=== PATIENT | male | born 1995 | race Caucasian/White ===

== ENCOUNTER 2019-11-29 06:45 | Day surgery (SDC) | payer OTHER ==
[2019-11-28 16:10] VITALS: BMI 28.7
--- NOTE | 2019-11-29 08:24 | HP ---
History & Physical Update - History History: No Change - Physical Physical: No Change - Assessment Assessment: No Change - Plan Plan: No Change (Initial H&P is located in patient's paper chart. Complete/ accurate/UTD. No new complaints or medications.)
[2019-11-29] MEDS ORDERED: MIDAZOLAM HCL 2 MG/2 ML SINGLE DOSE VIAL ONE ×2 (10:07→10:57)
[2019-11-29] MEDS ORDERED: BUPIVACAINE HCL/PF 0.5% (5 MG/ML) 30 ML VIAL IJ ONE (10:07)
[2019-11-29] MEDS ORDERED: BUPIVACAINE HCL/PF 0.5% (5MG/ML) 10 ML VIAL ONE (10:44)
[2019-11-29] MEDS ORDERED: methylPREDNISolone ACET (DEPO) 40 MG/1 ML VIAL ONE (10:52)
[2019-11-29] MEDS ORDERED: LIDOCAINE 1%/EPI 1:100000 (20 ML MULTI DOSE VIAL) ONE (10:52)
[2019-11-29] MEDS ORDERED: GUM MASTIC/STORAX/MSAL/ALCOHOL 1 DRP DROPSBTL MC ONE (10:53)
[2019-11-29] MEDS ORDERED: ceFAZolin SODIUM 1 GM VIAL ONE (11:08)
[2019-11-29] MEDS ORDERED: LIDOCAINE 1%/EPI 1:100000 (20 ML MULTI DOSE VIAL) INF ONE (11:16)
[2019-11-29] MEDS ORDERED: methylPREDNISolone ACET (DEPO) 40 MG/1 ML VIAL IM ONE (12:08)
--- NOTE | 2019-11-29 12:35 | OP ---
Operative Note - Note: Operative Date: 11/29/19 Pre-Operative Diagnosis: L5/S1 stenois, herniated disc, radiculopathy Operation: L5/S1 laminectomy (bilateral), left discectomy Post-Operative Diagnosis: Same as Pre-op Surgeon: Madi Voss [employer]ominium Property Manager: Rod Parish Anesthesiologist/SPINNER BOX: Jono Storm Anesthesia: Spinal Specimens Removed: L5/S1 discectomy Estimated Blood Loss (mls): 20 Fluid Volume Replaced (mls): 600 Operative Report Dictated: Yes
[2019-11-29] MEDS ORDERED: ONDANSETRON 4 MG/2 ML VIAL IVPUSH PRN (12:39)
[2019-11-29] MEDS ORDERED: PROMETHAZINE HCL 25 MG/1 ML VIAL IVPUSH PRN (12:39)
--- NOTE | 2019-11-29 13:06 | OP ---
DATE OF OPERATION: 11/29/2019 PREOPERATIVE DIAGNOSIS: Spinal stenosis L5-S1. POSTOPERATIVE DIAGNOSIS: Spinal stenosis L5-S1. PROCEDURE PERFORMED: Laminectomy L5-S1. SURGEON: Madi Voss MD CERAMIC SPRAYER: REMBERTO Marin ESTIMATED BLOOD LOSS: 50 mL. INTRAVENOUS FLUIDS: Per anesthesia. ANESTHESIA: Spinal/TLIP block. COMPLICATIONS: There were none. DISPOSITION: Patient was brought to the PACU in stable condition. INDICATIONS FOR SURGERY: Patient is a 24-year-old gentleman who has been suffering from pain from his back down his leg. X-rays and MRI were completed, which noted that he had spinal stenosis at L5, S1. He had gone through an exhaustive course of treatment for this, which included medications, physical therapy as well as injections. Unfortunately, his pain continued to persist despite all this. At this point, risks, benefits, alternatives were discussed, and the patient consented to surgery. DESCRIPTION OF PROCEDURE: The patient was brought to the operating room by the anesthesia staff. After appropriate patient identification was performed, spinal anesthesia was given. A TLIP block was also given. Patient was able to position himself prone onto the OR table with all areas and bony prominences well padded at this time. Two needles were placed into his back to brian off the L5-S1 segment. X-ray was taken to confirm this was correct. Needle was removed, and 10 mL of lidocaine with epinephrine was injected into his back. At this time, his back was prepped and draped in a sterile manner. At this point, a time-out was completed. An incision was made from the top of L5 down to the bottom of S1. Dissection was carried down to the fascia. Fascia was then split open at this time, and appropriate retractor was then placed in. A spinal needle was placed onto the L5 lamina to brian off the L5-S1 level. X-rays was taken to confirm this was correct. Needle was removed, and the interspinous ligament at L5-S1 was removed. Portions of the L5-S1 spinous processes were removed. Portions of the lamina were removed. Flavum was removed. A complete decompression was performed. The nerve root was mobilized medially. A disk herniation was noted. By the end of the procedure, the S1 nerve root appeared to be well decompressed. All bleeding was well controlled at this time. Steroid was placed over the nerve root. FloSeal was placed over that. The fascia was closed with a No. 1 Vicryl suture. The subcutaneous tissue was closed with 2-0 Vicryl suture. The skin was closed with 3-0 Monocryl suture. Dermabond was applied. Steri-Strips were applied. A sterile dressing was applied. The patient was placed supine on the OR bed, brought to the PACU in stable condition. Khadijah POOL/[id number]
[2019-11-29 13:54] VITALS: TEMP 98
[2019-11-29 15:24] VITALS: PULSE 70
[2019-11-29] MEDS ORDERED: oxyCODONE HCL 5 MG TABLET ONE (15:51)
[2019-11-29] MEDS ORDERED: oxyCODONE HCL 5 MG TABLET PO ONE (15:52)
[2019-11-29 16:03] VITALS: BP 114/66
--- NOTE | 2019-12-03 14:49 | PATH ---
Surgical Pathology Report Patient Name: VANDA COOPER [facility]. Rec. #: [id number] /Age/Gender: 1995 (Age: 24) / M Account: [id number] Location: [facility] Taken: 11/29/2019 Received: 11/29/2019 Reported: 12/03/2019 Physicians: Madi Voss M.D. Specimen(s) Received L5-S1 DISC Clinical History Spinal stenosis Final Diagnosis L5-S1, DISCECTOMY: PORTIONS OF FIBROCARTILAGINOUS TISSUE WITH FOCAL DEGENERATIVE CHANGE. Electronically Signed Kyle Zavala M.D. Gross Description Received in formalin labeled "L5-S1," are 2 olmos fragments of fibrocartilaginous tissue measuring 0.8 and 1.0 cm in greatest dimension. The specimens are submitted in toto in one cassette. 11/30/2019 [facility]11/30/2019
== END 2019-11-29 16:50 | disposition home or self-care (01) ==
LOC: FASU 06:45
PROVIDERS: ATTEND Orthopaedic Surgery Orthopaedic Surgery of the Spine
PROC: 01NB0ZZ Release Lumbar Nerve, Open Approach (ICD-10-PCS; principal; 2019-11-29 11:24)
DX: M48.07 Spinal stenosis, lumbosacral region (principal)
CPT/HCPCS: 72100-TC-FY; 76000-TC-FY; 88304-TC; 94760